=== PATIENT | male | born 1955 | race Hispanic/Latino ===

== ENCOUNTER → 2018-01-20 | Outpatient (CLI) | payer OTHER | END | disposition home or self-care (01) | LOC: RAH 13:05 | PROVIDERS: ATTEND Internal Medicine Critical Care Medicine | DX: G31.9 Degenerative disease of nervous system, unspecified (principal) | CPT/HCPCS: 70551 ==

== ENCOUNTER 2022-09-11 08:25 | Observation (INO) | payer MEDICARE ==
[~2022-09-11] VITALS: Ht 175.3 cm; Wt 95.4 kg
[2022-09-11] MEDS ORDERED: VALACYCLOVIR HCL 500 MG TABLET PO STA (09:08)
[2022-09-11] MEDS ORDERED: SOLU-MEDROL 125MG VIAL IVP ONE (09:30)
[2022-09-11] MEDS: GABAPENTIN 300 MG CAPSULE PO SCH (09:56)
[2022-09-11] MEDS ORDERED: LACTULOSE 20 GM/30 ML UDCUP PO PRN (10:00)
[2022-09-11] MEDS ORDERED: ONDANSETRON 4MG INJ IV PRN (10:00)
[2022-09-11] MEDS ORDERED: CEFTRIAXONE 1G VIAL 1 GM in 0.9%NACL 50ML 50 ML IV SCH (10:00)
[2022-09-11] MEDS ORDERED: HYDRALAZINE 20MG/ML VIAL IV PRN (10:00)
[2022-09-11] MEDS ORDERED: ACETAMINOPHEN 325 MG TAB PO PRN ×2 (10:00)
[2022-09-11 10:04] LABS: BASOPHILS % (AUTO) 0.5 % (0.0-5.0); EOSINOPHILS % (AUTO) 0.5 % (0.0-8.0); HEMATOCRIT 42.6 % (42-54); LYMPHOCYTES % (AUTO) 20.1 % (21.0-51.0); MEAN CORPUSCULAR HEMOGLOBIN 26.9 pg (27.0-33.0); MEAN CORPUSCULAR HGB CONC 34.7 g/dL (32.0-36.0); MEAN CORPUSCULAR VOLUME 77.5 fL (79-99); MONOCYTES % (AUTO) 9.5 % (3.0-13.0); PLATELET COUNT (AUTO) 144 K/uL (130-400); RED CELL DISTRIBUTION WIDTH 14.8 % (11.0-15.5); WHITE BLOOD COUNT (AUTO) 7.6 K/uL (4.8-10.8)
[2022-09-11 10:11] LABS: CREATININE 1.4 mg/dL (0.5-1.5); POTASSIUM 3.5 mmol/L (3.5-5.1)
[2022-09-11 10:16] LABS: ALBUMIN 3.6 g/dL (3.5-5.0); TOTAL PROTEIN, SERUM 8.6 g/dL (6.0-8.3)
[2022-09-11 10:24] LABS: INR 0.94 (0.85-1.15); PROTHROMBIN TIME 10.9 SEC (9.6-11.6)
[2022-09-11 10:25] LABS: CRP QUANTITATIVE 23.6 mg/L (0.00-9.0)
[2022-09-11 10:26] LABS: PARTIAL THROMBOPLASTIN TIME 29.9 SEC (26.3-35.5)
[2022-09-11 10:28] LABS: HEMOGLOBIN A1C 6.9 % (4.0-6.0)
[2022-09-11] MEDS ORDERED: LIDOCAINE HCL 5% OINT 50GM 1 APPL/GM TUBE TP PRN (10:30)
[2022-09-11] MEDS: CEFTRIAXONE 1G VIAL IVPB SCH (11:17)
[2022-09-11] MEDS ORDERED: PARO40TA72 PO (11:20)
[2022-09-11] MEDS ORDERED: LISI1TAB53 PO (11:27)
[2022-09-11] MEDS ORDERED: EZET-88 PO (11:27)
[2022-09-11] MEDS ORDERED: ONDANSETRON 4MG INJ IVP PRN (12:00)
[2022-09-11] MEDS: MORPHINE 2 MG SYG IVP PRN ×2 (12:20→20:29)
[2022-09-11] MEDS: ACYCLOVIR IV SCH ×2 (12:31→18:12)
[2022-09-11] MEDS: NACL 0.9% IV SCH ×2 (12:31→18:12)
[2022-09-11] MEDS ORDERED: ACYCLOVIR 1000 MG VIAL IV SCH (14:00)
[2022-09-11 16:00] VITALS: BP 149/62
[2022-09-11] MEDS: GABAPENTIN 100 MG CAPSULE PO SCH ×2 (17:09→20:27)
[2022-09-11] MEDS: INSULIN HUMULIN R 100 UNIT/ML 3ML SQ SCH ×2 (17:11→20:34)
[2022-09-11 20:08] VITALS: BP 117/61
[2022-09-11] MEDS ORDERED: FAMOTIDINE 20MG TAB PO SCH (21:00)
[2022-09-11 22:57] VITALS: BP 120/55
[2022-09-12 04:00] VITALS: BP 128/78
[2022-09-12] MEDS: ACYCLOVIR IV SCH (04:05)
[2022-09-12] MEDS: NACL 0.9% IV SCH (04:05)
[2022-09-12 05:30] LABS: BASOPHILS % (AUTO) 0.2 % (0.0-5.0); HEMATOCRIT 37.4 % (42-54); LYMPHOCYTES % (AUTO) 21.8 % (21.0-51.0); MEAN CORPUSCULAR HEMOGLOBIN 26.5 pg (27.0-33.0); MEAN CORPUSCULAR HGB CONC 34.2 g/dL (32.0-36.0); MEAN CORPUSCULAR VOLUME 77.4 fL (79-99); MONOCYTES % (AUTO) 8.2 % (3.0-13.0); NEUTROPHILS % (AUTO) 69.3 % (40.0-77.0); PLATELET COUNT (AUTO) 144 K/uL (130-400); RED BLOOD CELL COUNT(AUTO) 4.83 MIL/uL (4.50-6.20); RED CELL DISTRIBUTION WIDTH 14.2 % (11.0-15.5); WHITE BLOOD COUNT (AUTO) 6.2 K/uL (4.8-10.8)
[2022-09-12 05:55] LABS: ALBUMIN 3.1 g/dL (3.5-5.0); CREATININE 1.5 mg/dL (0.5-1.5); POTASSIUM 3.8 mmol/L (3.5-5.1); TOTAL PROTEIN, SERUM 7.5 g/dL (6.0-8.3)
[2022-09-12] MEDS: INSULIN HUMULIN R 100 UNIT/ML 3ML SQ SCH (06:31)
[2022-09-12 08:00] VITALS: BP 153/73
[2022-09-12] MEDS ORDERED: ENOXAPARIN SODIUM 40 MG/0.4 ML SYRINGE SQ SCH (09:00)
[2022-09-12] MEDS: GABAPENTIN 300 MG CAPSULE PO SCH (09:30)
[2022-09-12] MEDS: GABAPENTIN 100 MG CAPSULE PO SCH (09:39)
[2022-09-12] MEDS: CEFTRIAXONE 1G VIAL IVPB SCH (09:45)
[2022-09-12] MEDS ORDERED: ACYC-138 PO (10:21)
[2022-09-12] MEDS ORDERED: GABA100C PO (10:21)
[2022-09-12] MEDS ORDERED: COMPOUND IV MISC 1 EACH IVSOLN MISC PRN (12:00)
[2022-09-13 14:13] LABS: VARICELLA IGM ANTIBODY <0.91 index (0.00-0.90)
== END 2022-09-12 12:00 | disposition home or self-care (01) ==
LOC: EDH 08:25 → EDHIP 09:55 → INTOOBSV 09:55 → 4AH 15:08
PROVIDERS: ADMIT Hospitalist; ATTEND Hospitalist
DX: A41.9 Sepsis, unspecified organism (principal); L03.211 Cellulitis of face; B01.9 Varicella without complication; E11.9 Type 2 diabetes mellitus without complications; I10 Essential (primary) hypertension; E78.5 Hyperlipidemia, unspecified; E66.9 Obesity, unspecified; Z68.30 Body mass index [BMI] 30.0-30.9, adult; F03.90 Unspecified dementia, unspecified severity, without behavioral disturbance, psychotic disturbance, mood disturbance, and anxiety; I25.10 Atherosclerotic heart disease of native coronary artery without angina pectoris; F41.9 Anxiety disorder, unspecified; B02.9 Zoster without complications; F03.918 Unspecified dementia, unspecified severity, with other behavioral disturbance; Q33.3 Agenesis of lung; Z79.4 Long term (current) use of insulin; Z79.899 Other long term (current) drug therapy; Z95.1 Presence of aortocoronary bypass graft
CPT/HCPCS: 99291; 96365; 96375; 96367; 87635; 96366 ×2; 96376; 83036; 83615; 80053 ×2; 85025 ×2; 85610; 85730; 85651; 87040 ×2; 82948 ×3; 83605; 86787; 82010; 86140; 36415 ×2; 96372; J1815 ×3; J2270 ×2; J2930; J0696 ×3; J0133 ×3; J7050 ×3; G0378; J1650